=== PATIENT | female | born 1955 | race Caucasian/White ===

== ENCOUNTER → 2016-11-29 | Outpatient (CLI) | payer OTHER ==
--- NOTE | 2016-11-29 17:09 | MA ---
Digital Screening Mammogram History: Bilateral breast implants. Screening mammogram. Breast parenchymal density: Type C pattern. Technique: Four views of each breast are obtained including CC and oblique lateral Deonte (implant di splaced) and non-Deonte (implant not displaced) views. CAD is utilized using the iCAD product. Comparison: May 19, 2014; April 09, 2013; April 10, 2012. Findings: Bilateral breast implants are in place. There are no new masses, abnormal clusters of micro calcifications, or lymphadenopathy. Impression: Negative mammogram. BI-RADS 1. Routine screening is recommended in one year. [facility] will send a result letter to the patient. Negative mammography should not preclude additional workup of a clinically suspicious finding. The patient's information is entered into a reminder system with a target due date for her next mammo gram.
== END ==
LOC: BRMIMAGING 12:46
DX: Z12.31 Encounter for screening mammogram for malignant neoplasm of breast (principal)
CPT/HCPCS: G0202

== ENCOUNTER → 2018-01-05 | Outpatient (CLI) | payer OTHER | LOC: BRMIMAGING 13:07 | PROVIDERS: ATTEND Physician Assistant | DX: Z12.31 Encounter for screening mammogram for malignant neoplasm of breast (principal) ==

== ENCOUNTER → 2018-01-13 | Outpatient (CLI) | payer OTHER | LOC: BRMIMAGING 08:57 | PROVIDERS: ATTEND Physician Assistant | DX: R92.8 Other abnormal and inconclusive findings on diagnostic imaging of breast (principal) ==

== ENCOUNTER → 2019-04-14 | Outpatient (CLI) | payer OTHER | LOC: BRMIMAGING 11:03 ==